=== PATIENT | female | born 1975 | race Caucasian/White ===

== ENCOUNTER → 2022-05-02 10:34 | Outpatient (CLI) | payer BC, SELFPAY ==
--- NOTE | ~2022-05-02 | XR_ITS ---
XR cervical spine 4-5V DATE: 05/02/2022 11:04 INDICATION: Cervical radiculopathy TECHNIQUE: AP, open-mouth, lateral and swimmer views COMPARISON: None FINDINGS: There is prominent reversal of cervical curvature. There is minimal anterolisthesis at C2-3 and C3-4. There is greater anterolisthesis at C4-5, measurin g approximately 3 mm. Moderately severe degenerative disc disease C5-C6 and mild degenerative disc disease at C6-7. There is prominent uncovertebral joint spurring at C5-C6 and to a lesser extent C6-7. C1 and C2 are normally aligned and the odontoid process is intact. No fracture or dislocation or lock ed facet or prevertebral soft tissue swelling is detected. IMPRESSION: Prominent reversal of cervical curvature Minimal anterolisthesis at C2-3 and C3-4 3 mm anterolisthesis at C4-5 Moderately severe degenerative disc disease and prominent uncovertebral joint spurring at C5-C6 and t o a lesser extent C6-7 Reviewed, dictated and finalized at location A. IMPRESSION: Prominent reversal of cervical curvature Minimal anterolisthesis at C2-3 and C3-4 3 mm anterolisthesis at C4-5 Moderately severe degenerative disc disease and prominent uncovertebral joint s purring at C5-C6 and to a lesser extent C6-7
== END ==
PROVIDERS: PCP Physician Assistant; Visit Provider Physician Assistant
DX: M54.12 Radiculopathy, cervical region (principal); M50.323 Other cervical disc degeneration at C6-C7 level
CPT/HCPCS: 72050

== ENCOUNTER → 2022-06-23 14:22 | Outpatient (CLI) | payer BC, SELFPAY ==
--- NOTE | ~2022-06-23 | XR_ITS ---
EXAMINATION: XR chest 2V 06/23/2022 14:33 INDICATION: Chest pain PROCEDURE: 2 view chest COMPARISON: No prior studies for comparison. FINDINGS: The lungs are clear. The cardiomediastinal silhouette is within normal limits. There are no pleural effusions. There is no pneumothorax suspected. IMPRESSION: 1: NO ACUTE CARDIOPULMONARY DISEASE. Reviewed, dictated and finalized at location A.
== END ==
PROVIDERS: PCP Physician Assistant; Visit Provider Physician Assistant
DX: M50.30 Other cervical disc degeneration, unspecified cervical region (principal); R07.9 Chest pain, unspecified
CPT/HCPCS: 71046

== ENCOUNTER → 2022-06-30 14:19 | Outpatient (CLI) | payer BC, SELFPAY ==
--- NOTE | ~2022-06-30 | US_ITS ---
EXAMINATION: US carotid duplex BI DATE: 06/30/2022 14:47 INDICATION: Numbness in the fingers TECHNIQUE: Grayscale, color Doppler, and pulsed Doppler images of the cervical carotid arteries were obtained. The degree of vessel stenosis is placed in one of the following categories: normal, <50%, 5 0-69%, >=70% but less than near-occlusion, near-occlusion, or total occlusion. Note that percent sten osis relative to normal distal artery lumen diameter is indirectly measured from velocity measurement s as described by J Luis, et al. Radiology 2003; [id number]:[id number]. Notes: Normal: Peak systolic velocity <125 centimeters/sec and no plaque <50%. Peak systolic velocity <125 ( EDV <40; ICA/CCA PSV ratio <2.0; used these factors only a tandem lesions or low cardiac output or co ntralateral disease) 50-69 %: PSV 125-230 (EDV 40-100; ratio 2-4) >= 70% but less than near occlusion: PSV greater than 230 (EDV > 100; ratio> 4.0) Near Occlusion: PSV that is variable; markedly narrowed lumen Occlusion: Absent flow on color/spectral Doppler and no lumen on ravi scale. COMPARISON: None. FINDINGS: RIGHT: The right common carotid artery (CCA) peak systolic velocity (PSV) is 74 cm/s. The right internal car otid artery (ICA) PSV is 51 cm/s. The right ICA end-diastolic velocity (EDV) is 18 cm/s. The right IC A/CCA PSV ratio is 0.7. The external carotid artery (ECA) PSV is 108 cm/s. There is antegrade flow in the right vertebral artery. LEFT: The left CCA PSV is 102 cm/s. The left ICA PSV is 96 cm/s. The left ICA EDV is 36 cm/s. The left ICA/ CCA PSV ratio is 1.5. The ECA PSV is 70 cm/s. There is antegrade flow in the left vertebral artery. IMPRESSION: 1. Less than 50% stenosis in the right internal carotid artery by sonographic criteria. 2. Less than 50% stenosis in the left internal carotid artery by sonographic criteria. Reviewed, dictated and finalized at location B. IMPRESSION: 1. Less than 50% stenosis in the right internal carotid artery by sonographic c ajay. 2. Less than 50% stenosis in the left internal carotid artery by sonographic cr alexey.
--- NOTE | ~2022-06-30 | MR_ITS ---
EXAMINATION: MR cervical spine wo con DATE: 06/30/2022 15:33 INDICATION: Other cervical disc degeneration, unspecified cervical region. TECHNIQUE: Magnetic resonance imaging (MRI) of the cervical spine was performed without intravenous c ontrast. Sequences included sagittal T2-weighted FSE, sagittal T2-weighted FS FSE, sagittal T1-weight ed FSE, axial MERGE, and axial T2-weighted FSE. COMPARISON: Cervical spine radiographs 05/02/2022 FINDINGS: There is kyphosis of cervical spine. There is 2 mm anterolisthesis of C2 on C3 and C4 on C5 . Vertebral body heights are normal. There is moderately decreased disc height at C5-C6 and mildly de creased disc height at C6-C7. The spinal cord signal intensity is normal. The following disc levels a re specifically discussed: C2-C3: The disc does not extend beyond the endplate margin. There is mild bilateral uncovertebral karlo nt osteoarthritis. There is severe bilateral facet joint osteoarthritis. There is moderate right and mild left neural foraminal stenosis. There is no central canal stenosis. C3-C4: The disc does not extend beyond the endplate margin. There is mild bilateral uncovertebral karlo nt osteoarthritis. There is severe bilateral facet joint osteoarthritis. There is mild bilateral neur al foraminal stenosis. There is mild central canal stenosis. C4-C5: The disc is bulging. There is mild right and severe left uncovertebral joint osteoarthritis. T here is severe bilateral facet joint osteoarthritis. There is mild right and moderate left neural for aminal stenosis. There is mild central canal stenosis with ventral indentation of spinal cord. C5-C6: The disc is bulging. There is severe bilateral uncovertebral joint osteoarthritis. There is mo derate bilateral facet joint osteoarthritis. There is moderate right and mild left neural foraminal s tenosis. There is mild central canal stenosis. C6-C7: The disc is bulging. There is moderate right and severe left uncovertebral joint osteoarthriti s. There is mild right and moderate left facet joint osteoarthritis. There is mild bilateral neural f oraminal stenosis. There is mild central canal stenosis. C7-T1: The disc is bulging. There is no uncovertebral joint osteoarthritis. There is severe bilateral facet joint osteoarthritis. There is mild bilateral neural foraminal stenosis. There is no central c anal stenosis. IMPRESSION: 1. Moderate cervical spondylosis. Reviewed, dictated and finalized at location A.
== END ==
PROVIDERS: PCP Physician Assistant; Visit Provider Physician Assistant
DX: M50.30 Other cervical disc degeneration, unspecified cervical region (principal); R09.89 Other specified symptoms and signs involving the circulatory and respiratory systems; R07.9 Chest pain, unspecified; M47.892 Other spondylosis, cervical region; I65.23 Occlusion and stenosis of bilateral carotid arteries
CPT/HCPCS: 72141; 93880

== ENCOUNTER 2022-07-03 13:39 | Outpatient (CLI) | payer BC, SELFPAY ==
--- NOTE | 2022-07-03 | ECHO_ITS ---
Patient Info Name: Bernice Kaiser Age: 46 years : 1975 Gender: Female Ht: 64 in Wt: 185 lbs BSA: 1.98 m2 HR: 81 bpm BP: 132 / 69 mmHg Technical Quality: Good Exam Date: 07/03/2022 2:22 PM Exam Location: [facility] Patient Status: Outpatient Admit Date: 07/03/2022 Staff Ordering Physician: AndressaLisa PA-C [place] [facility] Supervisor: Ester Rodriguez RDCS Attending Provider: AltheaLisa PA-C Exam Type: CA echo doppler color flow Study Info Indications - chest pain Complete two-dimensional, color flow and Doppler transthoracic echocardiogram is performed. Summary 1. Complete two-dimensional, color flow and Doppler transthoracic echocardiogram is performed. 2. Left ventricular chamber dimension is normal. 3. Left ventricular systolic function is normal, estimated at 60-65%. 4. The left ventricular diastolic function is grade I diastolic dysfunction. 5. E/e' 7 is not elevated. 6. Global longitudinal strain is normal at -21.1%. 7. No pulmonary hypertension, estimated pulmonary arterial systolic pressure is 26 mmHg. Left Ventricle E/e' 7 is not elevated. Global longitudinal strain is normal at -21.1%. Left ventricular chamber dimension is normal. Left ventricular systolic function is normal, estimated at 60-65%. The left ventricular diastolic function is grade I diastolic dysfunction. Right Ventricle Right ventricular chamber dimension is normal. Right ventricular systolic function is normal. Left Atria Left atrial chamber dimension is normal. Right Atria Right atrial chamber dimension is normal. Aortic Valve The aortic valve is trileaflet. There is no aortic valve stenosis. There is no aortic valve regurgitation. Pulmonic Valve There is no pulmonic regurgitation. Mitral Valve There is no mitral valve stenosis. There is no mitral valve regurgitation. Tricuspid Valve There is no tricuspid valve regurgitation. No pulmonary hypertension, estimated pulmonary arterial systolic pressure is 26 mmHg. Pericardium/Pleural There is no pericardial effusion. Inferior Vena Cava Normal inferior vena cava with >50% collapse upon inspiration consistent with normal right atrial pressure, 5 mmHg. Aorta The aortic root size at the sinus of Valsalva is normal. Left Ventricular Outflow Tract Name Value Normal LVOT 2D LVOT Diameter 2.0 cm LVOT Doppler LVOT Peak Gradient 7 mmHg LVOT Mean Gradient 4 mmHg LVOT VTI 29 cm LVOT VTI/AV VTI Ratio 0.8 LVOT Stroke Volume 88 ml LVOT CO 17.1 l/min LVOT CI 8.7 l/min/m2 Pulmonic Valve Name Value Normal PV Doppler PV Peak Gradient 4 mmHg Mitr
== END 2022-07-03 13:40 | disposition home or self-care (01) ==
PROVIDERS: PCP Physician Assistant; Visit Provider Physician Assistant
DX: R07.9 Chest pain, unspecified (principal); R09.89 Other specified symptoms and signs involving the circulatory and respiratory systems
CPT/HCPCS: 93306

== ENCOUNTER → 2023-03-10 14:15 | Outpatient (CLI) | payer BC, SELFPAY ==
--- NOTE | ~2023-03-10 | XR_ITS ---
EXAMINATION: XR chest 2V Exam Date/Time: 03/10/2023 14:20 CDT HISTORY: Cough Comparison: 06/23/2022. RESULT: Lines, tubes, and devices: None. Lungs and pleura: Clear. Cardiomediastinal silhouette: Stable. Other: No acute osseous or upper abdominal finding. IMPRESSION: No acute cardiopulmonary process. Reviewed, dictated and finalized at location K.
== END ==
PROVIDERS: PCP Physician Assistant; Visit Provider Physician Assistant
DX: R05.9 Cough, unspecified (principal)
CPT/HCPCS: 71046

== ENCOUNTER 2024-08-30 10:55 | Outpatient (CLI) | payer BC, SELFPAY ==
--- NOTE | ~2024-08-30 | US_ITS ---
EXAMINATION: US carotid duplex BI DATE: 08/30/2024 11:37 INDICATION: Carotid bruit TECHNIQUE: Grayscale, color Doppler, and pulsed Doppler images of the cervical carotid arteries were obtained. The degree of vessel stenosis is placed in one of the following categories: normal, <50%, 5 0-69%, >=70% but less than near-occlusion, near-occlusion, or total occlusion. Note that percent sten osis relative to normal distal artery lumen diameter is indirectly measured from velocity measurement s as described by J Luis, et al. Radiology 2003; [id number]:[id number]. COMPARISON: None. FINDINGS: RIGHT: The right common carotid artery (CCA) peak systolic velocity (PSV) is 72 cm/s. The right internal car otid artery (ICA) PSV is 113 cm/s. The right ICA end-diastolic velocity (EDV) is 38 cm/s. The right I CA/CCA PSV ratio is 1.6. Grayscale and color Doppler images yield an estimate of <50% diameter reduct ion from plaque in the ICA. The external carotid artery (ECA) PSV is 106 cm/s. There is antegrade cristo w in the right vertebral artery. LEFT: The left CCA PSV is 86 cm/s. The left ICA PSV is 113 cm/s. The left ICA EDV is 53 cm/s. The left ICA/ CCA PSV ratio is 1.5. Grayscale and color Doppler images yield an estimate of <50% diameter reduction from plaque in the ICA. The ECA PSV is 40 cm/s. There is antegrade flow in the left vertebral artery . IMPRESSION: 1. <50% stenosis in the right internal carotid artery. 2. <50% stenosis in the left internal carotid artery. Reviewed, dictated and finalized at location A.
== END 2024-08-30 10:56 | disposition home or self-care (01) ==
PROVIDERS: PCP Physician Assistant; Visit Provider Physician Assistant
DX: R09.89 Other specified symptoms and signs involving the circulatory and respiratory systems (principal); I65.23 Occlusion and stenosis of bilateral carotid arteries
CPT/HCPCS: 93880

== ENCOUNTER 2025-05-09 15:02 | Outpatient (CLI) | payer BC, SELFPAY ==
--- NOTE | ~2025-05-09 | XR_ITS ---
EXAM/ PROCEDURE: XR lumbar spine min 4V - 05/09/2025 15:10 CDT HISTORY: 49 years old Female with Lower back pain COMPARISON: None available TECHNIQUE: Four view(s) FINDINGS/ IMPRESSION: There are no fractures or dislocations.Multilevel degenerative changes are seen. Grade 1 anterolisthesis of L4 on L5, likely degenerative. L5-S1 intervertebral disc space narrowing. Reviewed, dictated and finalized at location A.
== END 2025-05-09 15:03 | disposition home or self-care (01) ==
LOC: MICIMG 15:03
PROVIDERS: PCP Physician Assistant; Visit Provider Chiropractor
DX: M51.369 Other intervertebral disc degeneration, lumbar region without mention of lumbar back pain or lower extremity pain (principal)
CPT/HCPCS: 72110